=== PATIENT | female | born 1965 | race African-American/Black ===

== ENCOUNTER → 2016-06-04 | Outpatient (CLI) | payer BC, OTHER ==
[~2016-06-04] MED LIST: B-12500 MC1 PO; CANDESARTAN CIL32 MG PO; IBUPROFEN200 M1 PO; IBUPROFEN600 MG PO; IRON1 TAB PO; NEURONTIN100 MG PO; RANITIDINE HCL150 M1 PO; SOLU-MEDROL1000 MG IV; VIT D2 PO; VIT D3 PO
== END | disposition home or self-care (01) ==
LOC: CSSDAY 07:19
DX: G35 Multiple sclerosis (principal); Z79.52 Long term (current) use of systemic steroids
CPT/HCPCS: 96365; J2930

== ENCOUNTER → 2016-06-05 | Outpatient (CLI) | payer BC, OTHER | END | disposition home or self-care (01) | LOC: CSSDAY 06:53 | DX: G35 Multiple sclerosis (principal); Z79.52 Long term (current) use of systemic steroids | CPT/HCPCS: 96365; J2930 ==

== ENCOUNTER → 2016-06-06 | Outpatient (CLI) | payer BC, OTHER | END | disposition home or self-care (01) | LOC: CSSDAY 06:43 | DX: G35 Multiple sclerosis (principal); Z79.52 Long term (current) use of systemic steroids | CPT/HCPCS: 96365; J2930 ==